=== PATIENT | male | born 1985 | race Caucasian/White ===

== ENCOUNTER 2021-01-01 13:56 | Emergency (ER) | payer OTHER ==
[~2021-01-01] VITALS: Ht 182.9 cm; Wt 111.1 kg
[2021-01-01 14:49] LABS: HEMOGLOBIN 16.2 gm/dl (14.0-17.5); RED BLOOD COUNT 5.32 M/UL (4.20-5.50); WHITE BLOOD COUNT 7.1 K/UL (4.5-11.0)
== END 2021-01-01 17:00 | disposition home or self-care (01) ==
LOC: ER1 13:56
PROVIDERS: Physician Assistant
DX: U07.1 COVID-19 (principal); F17.200 Nicotine dependence, unspecified, uncomplicated
CPT/HCPCS: 80053; 85025; 99284